=== PATIENT | female | born 1980 | race African-American/Black ===

== ENCOUNTER 2023-05-11 00:28 | Emergency (ER) | payer MEDICAID, OTHER ==
[~2023-05-11] VITALS: Ht 160 cm; Wt 93.0 kg
[2023-05-11 01:13] LABS: BASOPHILS % 1.3 % (0.0-2.0); EOSINOPHILS % 3.1 % (0.0-5.0); HEMATOCRIT. 30.4 % (36.0-48.0); HEMOGLOBIN. 10.2 g/dL (12.0-16.0); LYMPHOCYTES % 29.4 % (20.0-50.0); MEAN CORPUSCULAR HEMOGLOBIN 30.3 pg (28.0-32.0); MEAN CORPUSCULAR HGB CONC 33.5 g/dL (31.0-37.0); MEAN CORPUSCULAR VOLUME 90.4 fL (81.0-99.0); MEAN PLATELET VOLUME 8.6 fl (7.4-10.4); MONOCYTES % 5.4 % (2.0-8.0); NEUTROPHILS % 60.8 % (40.0-76.0); PLATELET 173 x1000/uL (130-400); RED BLOOD CELL COUNT 3.37 mill/uL (4.2-5.4); RED CELL DISTRIBUTION WIDTH 14.1 % (11.6-14.6); WHITE BLOOD COUNT 3.7 x1000/uL (4.5-11.0)
[2023-05-11 01:14] LABS: CHLORIDE 103 mEq/L (98-107); INDEX HEMOLYSI 1 (1-3); INDEX ICTERIC 1 (1-4); INDEX LIPEMIC 1 (1-3); POTASSIUM 5.3 mEq/L (3.5-5.1); SODIUM 134 mEq/L (136-145)
[2023-05-11 01:25] LABS: HCG SCREEN NEGATIVE
[2023-05-11 01:33] LABS: ALANINE AMINOTRANSFERASE 27 IU/L (13-61); ALBUMIN 3.3 g/dL (3.4-5.0); ASPARTATE AMINOTRANSFERASE 31 IU/L (15-37); BILIRUBIN TOTAL 0.6 mg/dL (0.1-1.0); CALCIUM 8.1 mg/dL (8.5-10.1); CARBON DIOXIDE 27 mEq/L (21-32); GLUCOSE 179 mg/dL (70-105); NT PRO B-TYPE NATRIURETIC PEP 51952 pg/mL (5-125); PROTEIN TOTAL 6.9 g/dL (6.0-8.3); TROPONIN I HIGH SENSITIVITY 22 ng/L (<54); UREA NITROGEN BLOOD 43 mg/dL (7-21)
[2023-05-11 01:37] LABS: CREATININE 6.6 mg/dL (0.6-1.3)
[2023-05-11] MEDS ORDERED: ALBUTEROL (0.5%) 2.5MG/0.5ML NEB HHN ONE (03:00)
[2023-05-11] MEDS ORDERED: FUROSEMIDE 40MG/4ML VIAL IVP ONE (03:00)
[2023-05-11 03:22] VITALS: PULSE 84; RESP 20; O2SAT 99
[2023-05-11 09:00] VITALS: BP 186/114; TEMP 97.7
[2023-05-11] MEDS ORDERED: IPRATROPIUM/ALBUTEROL 0.5-3(2.5)MG/3ML NEB HHN PRN (09:45)
[2023-05-11 09:59] VITALS: PULSE 100; RESP 22
[2023-05-11] MEDS ORDERED: ONDANSETRON HCL 4MG/2ML INJ IV PRN (10:30)
[2023-05-11] MEDS ORDERED: ACETAMINOPHEN 325MG TABLET PO PRN (10:30)
[2023-05-11] MEDS ORDERED: NIFEDIPINE XL 60MG TAB PO SCH (10:30)
[2023-05-11] MEDS ORDERED: CLONIDINE 0.1MG TABLET PO PRN (10:30)
== END 2023-05-11 11:10 | disposition left against medical advice (07) ==
LOC: ER 01:01
DX: N18.6 End stage renal disease (principal); E87.5 Hyperkalemia; E87.70 Fluid overload, unspecified; J45.909 Unspecified asthma, uncomplicated
CPT/HCPCS: 80053; 84703; 83880; 85025; 84484; 36415; 71045; 94640; 93005; 96374; 99285; J1940; Z7610 ×6